=== PATIENT | male | born 1955 | race Caucasian/White ===

== ENCOUNTER 2018-12-23 16:49 | Emergency (ER) | payer OTHER ==
[~2018-12-23] VITALS: Ht 170.2 cm; Wt 86.4 kg
[2018-12-23 16:50] VITALS: Ht 170.2 cm; Wt 86.4 kg
--- NOTE | 2018-12-23 17:54 | ERD ---
ER Documentation Chief Complaint Chief Complaint FOOT WOUND AND LED SWELLING - HX DM HPI During the patient's encounter translation services were utilized Language: Bolivian Source: In person 63-year-old diabetic male who presents to the emergency room for evaluation of his right foot wound. The patient states that over 1 week ago he stepped on a nail. He recently was hospitalized at [facility] and recently discharged on antibiotics and he has 4-5 more days of antibiotics. He states that he is taking multiple different ones but does not know the names. Today he is here because he feels like he does not have enough bandages at home to care for the wound. He states that the redness, swelling and pain have dramatically improved. He denies any drainage or discharge. Patient does note some cracking and drying of the skin but he is still applying iodine. Patient denies any fevers or chills or other symptoms currently. He denies any pleuritic chest pain or shortness of breath. He states that his only reason for visiting the emergency room is for supplies. ROS All systems reviewed and are negative except as per history of present illness. FmHx Family History: diabetes Physical Exam Vitals Vital Signs Date Temp Pulse Resp B/P (MAP) Pulse Ox O2 O2 Flow FiO2 Time Delivery Rate 12/23/18 98.7 77 17 105/60 98 16:50 (75) Physical Exam General: Well developed, well nourished, no acute distress Head: Normocephalic, atraumatic. Eyes: EOM intact ENT: Moist mucous membranes Neck: Full ROM Respiratory: No respiratory distress Cardiovascular: Well perfused distally Abdominal: Nondistended : Deferred MSK: Right foot has evidence of a subacute puncture wound to the plantar surface of the foot that has granulation tissue without drainage or discharge. The tissue is slightly edematous but no erythema or warmth. The patient has some skin breakdown and crusting and cracking in between the first and second digits but no drainage or discharge noted. The patient has strong 2+ dorsalis pedis pulses. He does have some slight edema that is described as dramatically improved. Negative Homans sign. Patient has old skin marker likely demarcating cellulitis with no evidence of erythema warmth or tenderness at this level. Neurologic: Alert and oriented, moving all extremities, normal speech, steady gait Skin: As described above Psych: Normal mood Procedures/MDM The patient's wound is extremely well-appearing here in the emergency room. There are no signs or symptoms concerning for complication such as wound dehiscence, wound infection, cellulitis, or deep space infection. The patient is at significant risk for infection but appears to be on appropriate antibiotics. I would like to confirm that he is on a ralph quinolone given puncture wound but the patient does not know the name of the medications. Given the dramatic improvement he is likely on appropriate antibiotic regimen. The patient's only reason for visiting the emergency room is for supplies. The patient's description of the wound and foot appears to be improved in regards of swelling erythema warmth tenderness and pain. The patient has no drainage. All the patient does have some breakdown it appears to be normal for the healing process. The patient's clinical exam is not consistent with osteomyelitis or infected foot at this time. The patient has appropriate outpatient follow-up though he does need to see a proc tech. Referral information will be provided. I had a prolonged conversation d iscussing the risks and warning signs of return. The patient verbalized understanding. He will continue his home antibiotics. Departure Diagnosis: Primary Impression: Encounter for wound re-check Condition: Stable Patient Instructions: Wound Care Referrals: KIKA CUMMINGS DPM, ERIC H. D.P.M. [facility] () Usted se martinez hecho un examen mdico de control que le indica que no est en gus condicin que requiera tratamiento urgente en el Departamento de Emergencia. Un estudio ms profundo y el tratamiento de zarate condicin pueden esperar sin ningn riesgo hasta que usted sea atendida/o en el consultorio de zarate mdico o gus clnica. Es responsabilidad suya arreglar gus lance para el seguimiento del herberth. MANEJO DE CONDICIONES NO URGENTES EN EL FUTURO 1) Si usted tiene un mdico de atencin primaria: Usted debera llamar a zarate mdico de atencin primaria antes de venir al departamento de emergencia. Despus de las horas de consultorio, zarate doctor o zarate asociado/a est disponible por telfono. El mdico o enfermero de madhu en el servicio telefnico puede asesorarle por mariusz medio para atender el problema, o herberth contrario se puede programar gus lance. 2) Si usted no tiene un mdico de atencin primaria: Llame al mdico o clnica de referencia que aparece abajo zaina las horas de consultorio para hacer gus lance para que le vean. CLINICAS: [facility] [phone] [facility] [phone] [facility] [phone] [place] [id number] [phone] [facility] [phone] [address] [facility] [phone] [address] [facility]. [facility] () Usted se martinez hecho un examen mdico de control que le indica que no est en gus condicin que requiera tratamiento urgente en el Departamento de Emergencia. Un estudio ms profundo y el tratamiento de zarate condicin pueden esperar sin ningn riesgo hasta que usted sea atendida/o en el consultorio de zarate mdico o gus clnica. Es responsabilidad suya arreglar gus lance para el seguimiento del herberth. MANEJO DE CONDICIONES NO URGENTES EN EL FUTURO 1) Si usted tiene un mdico de atencin primaria: Usted debera llamar a zarate mdico de atencin primaria antes de venir al departamento de emergencia. Despus de las horas de consultorio, zarate doctor o zarate asociado/a est disponible por telfono. El mdico o enfermero de madhu en el servicio telefnico puede asesorarle por mariusz medio para atender el problema, o herberth contrario se puede programar gus lance. 2) Si usted no tiene un mdico de atencin primaria: Llame al mdico o condado institucions de referencia que aparece abajo zaina las horas de consultorio para hacer gus lance para que le vean. SI USTED NO PUEDE PAGAR PARA KIRK UN MEDICO puede ir a: [facility] [address] [place] [address] [facility] [address] [place] [address] [facility] [address] [place] [address] [facility] [address] [place] [id number] Additional Instructions: Finish your antibiotics. Please return for any worsening pain, swelling, redness or drainage. Follow-up with your primary care physician and development disability specialist. FAVIOLA GALLEGOS MD Dec 23, 2018 17:54
[2018-12-23 18:14] VITALS: BP 138/78; PULSE 78; RESP 18
== END 2018-12-23 18:16 | disposition home or self-care (01) ==
LOC: E/R 16:49
DX: Z48.01 Encounter for change or removal of surgical wound dressing (principal); E11.9 Type 2 diabetes mellitus without complications
CPT/HCPCS: 99281